=== PATIENT | female | born 1960 | race Caucasian/White ===

== ENCOUNTER → 2021-07-07 | Day surgery (SDC) | payer OTHER ==
[~2021-07-07] MED LIST: BUDE10.2 IH; BUPIVACAINE MPF 0.25% 10 ML VIAL. ONE; BUSP30TA PO; CARB1TAB33 PO; CHOL10004 PO; CLOP75TA PO; LAMO200T25 PO; albuterol NEB; methylPREDNISolone ACETATE 40 MG/ML VIAL. ONE
[2021-07-07 12:15] VITALS: BP 121/69
== END | disposition home or self-care (01) ==
LOC: SURG 11:25
PROVIDERS: ATTEND Anesthesiology
DX: M79.18 Myalgia, other site (principal); M54.2 Cervicalgia; J44.9 Chronic obstructive pulmonary disease, unspecified; M19.90 Unspecified osteoarthritis, unspecified site; F32.9 Major depressive disorder, single episode, unspecified; F17.210 Nicotine dependence, cigarettes, uncomplicated; Z98.890 Other specified postprocedural states; Z79.899 Other long term (current) drug therapy; Z90.710 Acquired absence of both cervix and uterus
CPT/HCPCS: 20553; A4657; A4930; J1030; J3490